=== PATIENT | female | born 1980 | race Caucasian/White ===

== ENCOUNTER 2016-10-08 13:03 | Emergency (ER) | payer BC ==
[~2016-10-08] VITALS: Ht 160 cm; Wt 61.2 kg
[~2016-10-08 13:03] MED LIST: ALBU8.5H2 IH; ALPR0.25 PO; GABA-534 PO; META800T11 PO; MTH/1CAP7 PO; NORE-7 PO; TAMS-12 PO; TAPE100T2 PO
[2016-10-08] MEDS ORDERED: NA PHOS,M-B/NA PHOS,DI-BA 1 EA ENEMA RC ONE ×4 (13:14→14:30)
[2016-10-08 13:20] LABS: BASOPHILS # (AUTO) 0.1 /CMM (0.0-0.2); BASOPHILS % (AUTO) 0.9 % (0.0-2.0); DIFF TOTAL % 100 %; EOSINOPHILS # (AUTO) 0.1 /CMM (0.0-0.7); EOSINOPHILS % (AUTO) 1.4 % (0.0-6.0); HEMATOCRIT 46 % (33-45); HEMOGLOBIN 14.7 g/dL (11.5-14.8); LYMPHOCYTES # (AUTO) 2.4 /CMM (0.8-4.8); LYMPHOCYTES % (AUTO) 34.8 % (20.0-44.0); MEAN CORPUSCULAR HEMOGLOBIN 28 PG (26.0-33.0); MEAN CORPUSCULAR HGB CONC 32 g/dl (31.0-36.0); MEAN CORPUSCULAR VOLUME 89 fL (82-100); MONOCYTES # (AUTO) 0.5 /CMM (0.1-1.30); MONOCYTES % (AUTO) 6.8 % (2.0-12.0); NEUTROPHILS # (AUTO) 3.8 /CMM (1.8-8.9); NEUTROPHILS % (AUTO) 56.1 % (43.0-81.0); PLATELET COUNT (AUTO) 424 /CMM (150-450); RED BLOOD CELL COUNT(AUTO) 5.21 MIL/uL (4.0-5.2); WHITE BLOOD COUNT (AUTO) 6.9 K/uL (4.3-11.0)
[2016-10-08 13:28] LABS: CALCIUM, SERUM 9.4 mg/dL (8.5-10.1); CREATININE 0.8 mg/dL (0.6-1.3); POTASSIUM 4.1 mmol/L (3.5-5.1)
[2016-10-08 13:34] LABS: ALBUMIN 3.8 g/dL (3.4-5.0); BILIRUBIN,DIRECT 0.1 mg/dL (0.0-0.2); BILIRUBIN,TOTAL 0.2 mg/dL (0.2-1.0); INDIRECT BILIRUBIN 0.1 mg/dL (0.0-1.1); TOTAL PROTEIN, SERUM 7.9 g/dL (6.4-8.2)
[2016-10-08] MEDS ORDERED: KETOROLAC TROMETHAMINE INJ 30 MG/ML VIAL ONE (14:05)
[2016-10-08 14:09] LABS: ADD UA MICROSCOPIC YES; KETONES,URINE Negative (NEGATIVE); LEUKOCYTE ESTERASE ,URINE Trace (NEGATIVE)
[2016-10-08 14:18] LABS: PREGNANCY TEST URINE QUAL NEGATIVE (NEGATIVE)
[2016-10-08 14:29] LABS: RBC,URINE 0-2 /HPF (0-2); WBC,URINE 0-3 /HPF (0-3)
[2016-10-08 14:30] LABS: ADD URINE CULTURE YES
[2016-10-08] MEDS ORDERED: KETOROLAC TROMETHAMINE INJ 30 MG/ML VIAL IM/IV ONE (14:30)
[2016-10-08 15:23] VITALS: BP 128/77
== END 2016-10-08 15:24 | disposition home or self-care (01) ==
LOC: ER 13:04
DX: K59.00 Constipation, unspecified (principal); F41.9 Anxiety disorder, unspecified; J45.909 Unspecified asthma, uncomplicated; Z88.6 Allergy status to analgesic agent; Z88.8 Allergy status to other drugs, medicaments and biological substances
CPT/HCPCS: 36415; 80048; 80076; 81001; 83690; 84703; 85025; 87086; 93005; 96374; 99285; A4606; J1885; 81000-TC; Z7610

== ENCOUNTER 2017-06-13 20:09 | Emergency (ER) | payer BC ==
[~2017-06-13] VITALS: Ht 167.6 cm; Wt 61.2 kg
--- NOTE | 2017-06-13 20:30 | NUR ---
To bed 8 a 36 yo female patient bb mother and reports of "feeling weak for a few days." patient is aaox4, nad noted. breathing even and unlabored. vss. nondiaphoretic. ambulatory. gowned. comfort and safety measures in place.
--- NOTE | 2017-06-13 21:00 | NUR ---
[employer] Freida at bedside to eval.
--- NOTE | 2017-06-13 21:15 | NUR ---
started a saline lock on the lac g20, blood drawn and sent to lab.
[2017-06-13] MEDS ORDERED: ONDANSETRON HCL/PF 4 MG/2 ML VIAL ONE (21:16)
[2017-06-13] MEDS ORDERED: LORAZEPAM INJ 2 MG/ML VIAL ONE (21:16)
[2017-06-13 21:19] LABS: BASOPHILS % (AUTO) 0.5 % (0.0-2.0); EOSINOPHILS # (AUTO) 0.4 /CMM (0.0-0.7); HEMATOCRIT 35 % (33-45); HEMOGLOBIN 11.4 g/dL (11.5-14.8); LYMPHOCYTES # (AUTO) 2.5 /CMM (0.8-4.8); LYMPHOCYTES % (AUTO) 31.4 % (20.0-44.0); MEAN CORPUSCULAR HEMOGLOBIN 29 PG (26.0-33.0); MEAN CORPUSCULAR HGB CONC 33 g/dl (31.0-36.0); MEAN CORPUSCULAR VOLUME 88 fL (82-100); MONOCYTES # (AUTO) 0.6 /CMM (0.1-1.30); MONOCYTES % (AUTO) 7.2 % (2.0-12.0); NEUTROPHILS # (AUTO) 4.4 /CMM (1.8-8.9); NEUTROPHILS % (AUTO) 55.9 % (43.0-81.0); PLATELET COUNT (AUTO) 251 /CMM (150-450); RDW COEFFICIENT OF VARIATION 13.1 (11.5-15.0); RED BLOOD CELL COUNT(AUTO) 3.96 MIL/uL (4.0-5.2); WHITE BLOOD COUNT (AUTO) 7.8 K/uL (4.3-11.0)
--- NOTE | 2017-06-13 21:26 | NUR ---
medicated patient as ordered. will continue to monitor.
[2017-06-13] MEDS ORDERED: IV NS 0.9% 1,000 ML BAG IV ONE (21:30)
[2017-06-13] MEDS ORDERED: LORAZEPAM INJ 2 MG/ML VIAL IV ONE (21:30)
[2017-06-13] MEDS ORDERED: ONDANSETRON HCL/PF 4 MG/2 ML VIAL IVP ONE (21:30)
[2017-06-13 21:33] LABS: CALCIUM, SERUM 8.3 mg/dL (8.5-10.1); CARBON DIOXIDE 31 mmol/L (21-32); CHLORIDE 104 mmol/L (98-107); CREATININE 0.7 mg/dL (0.6-1.3); GLUCOSE 105 mg/dL (74-106); POTASSIUM 3.9 mmol/L (3.5-5.1); SODIUM SERUM 139 mmol/L (136-145); UREA NITROGEN, BLOOD 9 mg/dL (7-18)
[2017-06-13 21:41] LABS: TROPONIN I < 0.017 ng/mL (0.00-0.056)
[2017-06-13 21:54] LABS: INR 0.9 (0.87-1.13); PROTHROMBIN TIME 9.4 SECS (9.5-12.7)
[2017-06-13 22:00] LABS: APPEARANCE,URINE CLEAR (CLEAR); BILIRUBIN,URINE NEGATIVE (NEGATIVE); BLOOD, URINE 1+ Ery/uL (NEGATIVE); COLOR,URINE YELLOW (YELLOW); KETONES,URINE NEGATIVE (NEGATIVE); LEUKOCYTE ESTERASE ,URINE NEGATIVE (NEGATIVE); NITRITE, URINE NEGATIVE (NEGATIVE); PROTEIN,URINE NEGATIVE (NEGATIVE); UGLUCOSE NEGATIVE (NEGATIVE); UROBILINOGEN,URINE 0.2 EU/dL (0.2)
[2017-06-13 22:10] LABS: BACTERIA,URINE Few /HPF (None Seen); SQUAMOUS EPITHELIAL CELL,UR Few /HPF (None Seen); WBC,URINE 0-2 /HPF (0-3)
--- NOTE | 2017-06-14 00:18 | NUR ---
IV removed. Catheter intact and site benign. Pressure and 4x4 applied to site. No bleeding noted. Patient discharged to home in stable condition. Written and verbal after care instructions given. Patient verbalizes understanding of instruction. Patient is ambulatory with steady gait, accompanied by mother. Instructed not to drive. No further complaints.
[2017-06-14 00:20] VITALS: BP 95/64
== END 2017-06-14 00:20 | disposition home or self-care (01) ==
LOC: ER 20:10
DX: T65.891A Toxic effect of other specified substances, accidental (unintentional), initial encounter (principal); F41.9 Anxiety disorder, unspecified; G89.29 Other chronic pain; J45.909 Unspecified asthma, uncomplicated; R79.1 Abnormal coagulation profile; Z88.6 Allergy status to analgesic agent; Z88.8 Allergy status to other drugs, medicaments and biological substances; Y92.89 Other specified places as the place of occurrence of the external cause
CPT/HCPCS: 36415; 71010; 80048; 80305; 81001; 84484; 85025; 85730; 93005; 93971; 96361; 96374; 96375; 99285; A4606; J2060; J2405; J7030; 81000-TC; Z7610

== ENCOUNTER 2019-12-15 18:39 | Inpatient (IN) | payer BC ==
[~2019-12-15] VITALS: Ht 167.6 cm; Wt 50.8 kg
[~2019-12-15 18:39] MED LIST changes: -ALBU8.5H2 IH; +ALBU8.5H8 IH; -META800T11 PO; +META800T85 PO; +klonopin PO
--- NOTE | 2019-12-15 19:30 | NUR ---
URINE COLLECTED AND SENT TO LAB
--- NOTE | 2019-12-15 19:31 | NUR ---
PATIENT CAME TO ER BED 10 C/O LOWER ABDOMINAL PAIN. PATIENT ALSO C/O OF MID-BACK PAIN THAT RADIATES TO THE RIGHT LOWER EXTREMITY PATIENTS STATES "SHOOTING PAIN". PATIENT CAME TO ER WITH A REFERRAL FROM AN URGENT CARE THAT SHE WENT TO PRIOR TO COMING TO ER. AAOX4. NO SOB. BREATHING EVENLY AND UNLABORED. CONNECTED TO MONITOR.
--- NOTE | 2019-12-15 19:37 | NUR ---
SEEN AND EXAMINED BY
[2019-12-15 19:39] LABS: APPEARANCE,URINE Clear (CLEAR); BILIRUBIN,URINE Negative (NEGATIVE); BLOOD, URINE Negative Ery/uL (NEGATIVE); COLOR,URINE Yellow (YELLOW); KETONES,URINE Negative (NEGATIVE); LEUKOCYTE ESTERASE ,URINE Negative (NEGATIVE); NITRITE, URINE Negative (NEGATIVE); PROTEIN,URINE Negative (NEGATIVE); UGLUCOSE Negative (NEGATIVE); UROBILINOGEN,URINE 0.2 EU/dL (0.2)
[2019-12-15] MEDS ORDERED: diphenhydrAMINE HCL 25 MG CAPSULE ONE (19:51)
[2019-12-15] MEDS ORDERED: HYDROMORPHONE 1 MG/1 ML DISP.SYRIN ONE ×2 (19:51→21:01)
[2019-12-15] MEDS ORDERED: DIPHENHYDRAMINE HCL 12.5 MG/5 ML UDC PO ONE (20:00)
[2019-12-15] MEDS ORDERED: HYDROMORPHONE 1 MG/1 ML DISP.SYRIN IV ONE ×2 (20:00→21:00)
--- NOTE | 2019-12-15 20:11 | NUR ---
BLOOD DRAWN AND SENT TO LAB.
--- NOTE | 2019-12-15 20:18 | NUR ---
TAKEN TO CT VIA FELIPE
[2019-12-15 20:20] LABS: BASOPHILS # (AUTO) 0.1 /CMM (0.0-0.2); EOSINOPHILS % (AUTO) 1.3 % (0.0-6.0); HEMATOCRIT 37 % (33-45); HEMOGLOBIN 12.1 g/dL (11.5-14.8); LYMPHOCYTES # (AUTO) 1.5 /CMM (0.8-4.8); LYMPHOCYTES % (AUTO) 22.9 % (20.0-44.0); MEAN CORPUSCULAR HGB CONC 33 g/dl (31.0-36.0); MEAN CORPUSCULAR VOLUME 86 fL (82-100); MONOCYTES # (AUTO) 0.4 /CMM (0.1-1.30); NEUTROPHILS # (AUTO) 4.5 /CMM (1.8-8.9); NEUTROPHILS % (AUTO) 68.8 % (43.0-81.0); PLATELET COUNT (AUTO) 358 /CMM (150-450); WHITE BLOOD COUNT (AUTO) 6.6 K/uL (4.3-11.0)
[2019-12-15 20:29] LABS: ALBUMIN 3.8 g/dL (3.4-5.0); BILIRUBIN,TOTAL 0.3 mg/dL (0.2-1.0); CALCIUM, SERUM 9.3 mg/dL (8.5-10.1); CREATININE 0.9 mg/dL (0.6-1.3); POTASSIUM 4.2 mmol/L (3.5-5.1); TOTAL PROTEIN, SERUM 7.6 g/dL (6.4-8.2)
[2019-12-15] MEDS ORDERED: IV NS 0.9% 1,000 ML BAG IV ONE (21:00)
--- NOTE | 2019-12-15 21:46 | NUR ---
MS 322-1
--- NOTE | 2019-12-15 22:15 | NUR ---
DR OCONNOR CALLED BACK AND SPEAKING TO MD Addendum: 12/15/19 at [address] ARABELLA OCONNOR (PT'S GI DOCTOR FROM [facility])
--- NOTE | 2019-12-15 22:18 | NUR ---
REPORT GIVEN TO JAGUAR TERRELL FOR ADAM.
[2019-12-15 22:30] VITALS: BP_SYST 112; BP_DIAS 68; BP_DIAS 74
--- NOTE | 2019-12-15 22:30 | NUR ---
GUARDIAN FAMILY MEMBER NOTE, RECEIVED PATIENT FROM E.. / HOME VIA STECHER, PATIENT HAS A COMPLAINT OF ABDOMINAL PAIN AT 9 OUT 10 ON THE PAIN SCALE. PATIENT IS GETTING IV PAIN MEDICATION FOR THIS PAIN. PATIENT IS DISPLAYING NO S/S OF APPARENT DISTRESS AT THIS TIME. PATIENT BREATHING IS UNLABORED WITH EQUAL RISE AND FALL OF THE CHEST. PATIENT IS ALERT AND ORIENTED X 4 ON ROOM AIR. IVF NS @ 75 ML / HR INFUSING WELL INTO RIGHT 20 GAUGE FORE ARM THAT IS INTACT, PATENT, AND FLUSHING WELL WITH NO S/S OF INFILTRATION. PATIENT HAS CARNES CATHETER GRAVITY DRAINING CLEAR YELLOW URINE INTO BAG. PATIENT ASSISTED WITH TURNING AND REPOSITIONING Q 2 HR AND PRN FOR COMFORT AND CIRCULATION. PATIENT HAS NO NEEDS AT THIS TIME. PATIENT BELONGINGS LIST, ADVANCED DIRECTIVES PREFERENCE, IMMUNIZATIONS QUESTIONER, AND SKIN ASSESSMENT HAS BEEN COMPLETED. PATIENT ORIENTATED TO ROOM, FLOOR, AND STAFF ALL QUESTIONS ANSWERED. PATIENT EDUCATED ON THE USE OF THE CALL LIGHT. PATIENT BED SIDE RAILS UP X 2 FOR SAFETY, BED IS LOCKED AND LOW WILL CONTINUE TO MONITOR AND MAINTAIN SAFETY.
[2019-12-15] MEDS ORDERED: DOXE50CA4 PO (23:11)
[2019-12-15] MEDS ORDERED: AMPH10TA4 PO (23:14)
[2019-12-15] MEDS: IV NS 0.9% 1,000 ML IV PRN (23:29)
[2019-12-15] MEDS ORDERED: Z GUARD REMEDY 2 OZ OINT TP PRN (23:30)
[2019-12-15] MEDS ORDERED: NA PHOS,M-B/NA PHOS,DI-BA 1 EA ENEMA RC PRN (23:30)
[2019-12-15] MEDS ORDERED: ACETAMINOPHEN 325 MG TABLET PO PRN (23:30)
[2019-12-15] MEDS ORDERED: MORPHINE SULFATE INJ 2 MG/ML DISP.SYRIN IV PRN (23:30)
[2019-12-15] MEDS ORDERED: MAGNESIUM CITRATE 296 ML BOTTLE PO ONE (23:30)
[2019-12-16] MEDS ORDERED: ALBUTEROL SULFATE INH 18 GM HFA.AER.AD IH SCH
[2019-12-16] MEDS ORDERED: DOXEPIN HCL 10 MG CAPSULE PO PRN
[2019-12-16] MEDS ORDERED: clonazePAM 1 MG TABLET PO PRN
[2019-12-16] MEDS: HYDROMORPHONE 1 MG/1 ML DISP.SYRIN IV PRN ×6 (00:10→22:46)
--- NOTE | 2019-12-16 00:10 | NUR ---
FLAT OPTICAL ELEMENT MAKER NOTE, PATIENT HAS A COMPLAINT OF LOWER ABDOMINAL PAIN AT 9 OUT 10 ON THE PAIN SCALE AND IS REQUESTING DILAUDID AT THIS TIME. PATIENT VITAL SIGNS ARE STABLE. GAVE DILAUDID 1 MG IV Q4HR PRN ORDERED. WILL REASSESS PAIN AND I WILL CONTINUE TO MONITOR THIS PATIENT.
[2019-12-16] MEDS ORDERED: ALBUTEROL FS 2.5 MG/3 ML VIAL.NEB NEB PRN (00:15)
--- NOTE | 2019-12-16 04:30 | NUR ---
BUSINESS TRAVEL CONSULTANT NOTE, PATIENT HAS A COMPLAINT OF LOWER ABDOMINAL PAIN AT 9 OUT 10 ON THE PAIN SCALE AND IS REQUESTING DILAUDID AT THIS TIME. PATIENT VITAL SIGNS ARE STABLE. GAVE DILAUDID 1 MG IV Q4HR PRN ORDERED. WILL REASSESS PAIN AND I WILL CONTINUE TO MONITOR THIS PATIENT.
--- NOTE | 2019-12-16 04:30 | NUR ---
ILIANA DUMONT RN NOTE, PATIENT HAS A COMPLAINT OF FEELING NAUSEA AND IS REQUESTING ZOFRAN AT THIS TIME. PATIENT VITAL SIGNS ARE STABLE. GAVE ZOFRAN 4 MG PO Q6HR PRN ORDERED WILL REASSESS FOR NAUSEA WILL CONTINUE TO MONITOR THIS PATIENT.
[2019-12-16] MEDS: ONDANSETRON HCL/PF 4 MG/2 ML VIAL IVP PRN ×2 (04:31→09:00)
--- NOTE | 2019-12-16 06:36 | NUR ---
MED SURG CLOSING RN NOTE, PATIENT HAS A COMPLAINT OF ABDOMINAL PAIN AT 5 OUT 10 ON THE PAIN SCALE. PATIENT IS GETTING IV PAIN MEDICATION FOR THIS PAIN. PATIENT IS DISPLAYING NO S/S OF APPARENT DISTRESS AT THIS TIME. PATIENT BREATHING IS UNLABORED WITH EQUAL RISE AND FALL OF THE CHEST. PATIENT IS ALERT AND ORIENTED X 4 ON ROOM AIR. IVF NS @ 75 ML / HR INFUSING WELL INTO RIGHT 20 GAUGE FORE ARM THAT IS INTACT, PATENT, AND FLUSHING WELL WITH NO S/S OF INFILTRATION. PATIENT HAS CARNES CATHETER GRAVITY DRAINING CLEAR YELLOW URINE INTO BAG. PATIENT ASSISTED WITH TURNING AND REPOSITIONING Q 2 HR AND PRN FOR COMFORT AND CIRCULATION. PATIENT HAS NO NEEDS AT THIS TIME. PATIENT BED SIDE RAILS UP X 2 FOR SAFETY, BED IS LOCKED AND LOW WILL ENDORSE TO AM SHIFT NURSE FOR CONTINUATION OF CARE.
[2019-12-16] MEDS: PANTOPRAZOLE 40 MG TABLET.DR PO SCH ×3 (07:30→08:59)
--- NOTE | 2019-12-16 07:54 | NUR ---
RN OPENING NOTE: RECEIVED PATIENT IN BED, AWAKE AND AOX4. AMBULATORY WITH STEADY GAIT. PATIENT IS C/O PAIN 9/10 IN ABDOMEN. ASSISTED WITH REPOSITIONING. EDUCATED ON USE OF PAIN MEDICATION AND WHEN NEXT DOSE IS AVAILABLE. PATIENT IS TOLERATING CLEAR LIQUID DIET. RFA 20G PATENT, FLUSHED, INTACT RUNNING NS AT 75 ML/HR ORDERED. PATIENT ENDORSED 25 POUND WEIGHT GAIN. CURRENTLY AT 130.8 POUNDS. ADMIT WEIGHT 112. STATES SHE IS NORMALLY AT 104 POUNDS. ENDORSED ANXIETY AND PREVIOUS EATING DISORDER. LABS THIS MORNING. SAFETY PRECAUTIONS IN PLACE. BED IN LOW POSITION, LOCKED WITH 2 SIDE RAILS UP FOR SAFETY. CALL LIGHT WITHIN REACH. ALL NEEDS ATTENDED TO. WILL CONTINUE TO MONITOR.
[2019-12-16 08:00] VITALS: BP 101/57
[2019-12-16] MEDS ORDERED: GABAPENTIN 100 MG CAPSULE PO SCH ×2 (09:00→18:00)
[2019-12-16] MEDS ORDERED: diphenhydrAMINE HCL 50 MG/ML VIAL IV PRN (09:00)
[2019-12-16] MEDS ORDERED: AMPHET ASP/AMPHET/D-AMPHET 10 MG TABLET PO SCH (09:00)
[2019-12-16 09:03] LABS: BASOPHILS % (AUTO) 0.6 % (0.0-2.0); EOSINOPHILS % (AUTO) 0.4 % (0.0-6.0); HEMATOCRIT 35 % (33-45); HEMOGLOBIN 11.5 g/dL (11.5-14.8); LYMPHOCYTES # (AUTO) 1.1 /CMM (0.8-4.8); LYMPHOCYTES % (AUTO) 22.9 % (20.0-44.0); MEAN CORPUSCULAR HGB CONC 33 g/dl (31.0-36.0); MEAN CORPUSCULAR VOLUME 86 fL (82-100); MONOCYTES # (AUTO) 0.5 /CMM (0.1-1.30); NEUTROPHILS # (AUTO) 3.2 /CMM (1.8-8.9); NEUTROPHILS % (AUTO) 65.1 % (43.0-81.0); PLATELET COUNT (AUTO) 313 /CMM (150-450); RED BLOOD CELL COUNT(AUTO) 4.09 MIL/uL (4.0-5.2)
[2019-12-16 09:22] LABS: THYROID STIMULATING HORMONE 5.813 uIU/mL (0.358-3.74)
[2019-12-16 09:28] LABS: ALBUMIN 3.2 g/dL (3.4-5.0); BILIRUBIN,TOTAL 0.9 mg/dL (0.2-1.0); CALCIUM, SERUM 8.6 mg/dL (8.5-10.1); PHOSPHORUS 3.9 mg/dL (2.5-4.9); POTASSIUM 4.1 mmol/L (3.5-5.1); TOTAL PROTEIN, SERUM 6.5 g/dL (6.4-8.2)
[2019-12-16] MEDS: IV NS 0.9% 1,000 ML IV PRN (12:08)
[2019-12-16] MEDS ORDERED: diphenhydrAMINE HCL 50 MG/ML VIAL IV ONE (13:00)
--- NOTE | 2019-12-16 13:00 | NUR ---
DESPITE EDUCATION PATIENT IS REFUSING TO USE CONTRAST FOR XRAY SMALL BOWEL FOLLOW THROUGH. PROCEDURE CANCELLED
[2019-12-16] MEDS ORDERED: BARIUM SULFATE 98% 135 ML SUSP.RECON PO ONE (15:46)
[2019-12-16 16:00] VITALS: BP 97/66
--- NOTE | 2019-12-16 16:04 | NUR ---
PATIENT PICKED UP FOR XR SMALL BOWEL FOLLOW THROUGH
--- NOTE | 2019-12-16 16:21 | NUR ---
GI CONSULT REQUESTED BY MICHAEL WHITEHEAD / DR MILLS. CLIF AWARE. DR. ESTEVEZ NOTIFIED.
[2019-12-16 16:46] LABS: ALBUMIN 3.4 g/dL (3.4-5.0); BILIRUBIN,DIRECT 0.3 mg/dL (0.0-0.2); BILIRUBIN,TOTAL 0.9 mg/dL (0.2-1.0); TOTAL PROTEIN, SERUM 6.5 g/dL (6.4-8.2)
--- NOTE | 2019-12-16 18:00 | NUR ---
patient NPO unable to administer Gabapentin at this time.
--- NOTE | 2019-12-16 18:42 | NUR ---
RN CLOSING NOTE: PATIENT IN BED, AWAKE AND AOX4. AMBULATORY WITH STEADY GAIT. BREATHING EVEN AND UNLABORED WITH EQUAL RISE AND FALL OF CHEST. PATIENT IS C/O PAIN 05/09 IN ABDOMEN. PAIN MEDICATION ADMINISTERED ORDERED. LEFT WRIST 22G RUNNING NS AT 75 ML/HR ORDERED. SAFETY PRECAUTIONS IN PLACE. BED IN LOW POSITION, LOCKED WITH 2 SIDE RAILS UP FOR SAFETY. CALL LIGHT WITHIN REACH. ALL NEEDS ATTENDED TO. WILL CONTINUE TO MONITOR. Addendum: 12/16/19 at 1847 by SUSANNA PORRAS RN WILL ENDORSE CARE TO GYROSCOPIC INSTRUMENT TESTER RN FOR ADAM
--- NOTE | 2019-12-16 19:30 | NUR ---
MED SURG OPENING RN NOTE, PATIENT HAS A COMPLAINT OF ABDOMINAL PAIN AT 5 OUT 10 ON THE PAIN SCALE. PATIENT IS GETTING IV PAIN MEDICATION FOR THIS PAIN. PATIENT IS DISPLAYING NO S/S OF APPARENT DISTRESS AT THIS TIME. PATIENT BREATHING IS UNLABORED WITH EQUAL RISE AND FALL OF THE CHEST. PATIENT IS ALERT AND ORIENTED X 4 ON ROOM AIR. IVF NS @ 75 ML / HR INFUSING WELL INTO LEFT 22GAUGE FORE ARM THAT IS INTACT, PATENT, AND FLUSHING WELL WITH NO S/S OF INFILTRATION. PATIENT HAS CARNES CATHETER GRAVITY DRAINING CLEAR YELLOW URINE INTO BAG. PATIENT ASSISTED WITH TURNING AND REPOSITIONING Q 2 HR AND PRN FOR COMFORT AND CIRCULATION. PATIENT HAS NO NEEDS AT THIS TIME. PATIENT BED SIDE RAILS UP X 2 FOR SAFETY, BED IS LOCKED AND LOW WILL CONTINUE TO MONITOR THIS PATIENT.
[2019-12-16 20:00] VITALS: BP 93/58
[2019-12-16 21:06] VITALS: BP 93/58
[2019-12-16 22:41] VITALS: BP 109/70
--- NOTE | 2019-12-16 22:46 | NUR ---
JEWELRY INTERNSHIP NOTE, PATIENT HAS A COMPLAINT OF LOWER ABDOMINAL PAIN AT 8 OUT 10 ON THE PAIN SCALE AND IS REQUESTING DILAUDID AT THIS TIME. PATIENT VITAL SIGNS ARE STABLE. GAVE DILAUDID 1 MG IV Q4HR PRN ORDERED. WILL REASSESS PAIN AND I WILL CONTINUE TO MONITOR THIS PATIENT.
[2019-12-16] MEDS ORDERED: GABAPENTIN 100 MG CAPSULE PO ONE (23:00)
[2019-12-16] MEDS ORDERED: MAGNESIUM CITRATE 296 ML BOTTLE PO ONE (23:00)
--- NOTE | 2019-12-16 23:17 | NUR ---
ILIANA DUMONT RN NOTE, PATIENT SMALL BOWEL X-RAY ARE FOLLOWS 1. Delayed passage of contrast through the small bowel, suggestive of hypomotility versus adynamic ileus given the presence of extensive stool throughout the colon. 2. No evidence of bowel obstruction. PAGED [facility] AND INFORMED DR POLANCO OF MY FINDINGS. DR POLANCO ORDERED TO ADVANCE DIET, GIVE MAGNESIUM CITRATE 296ML PO ONCE AND TO GIVE MISSED DOSE OF GABAPENTIN 500MG PO ONCE. ALL ORDERS NOTED AND CARRIED OUT WILL CONTINUE TO MONITOR THIS PATIENT.
[2019-12-17] MEDS: HYDROMORPHONE 1 MG/1 ML DISP.SYRIN IV PRN ×2 (04:08→08:09)
--- NOTE | 2019-12-17 04:08 | NUR ---
BEAN ROASTER NOTE, PATIENT HAS A COMPLAINT OF LOWER ABDOMINAL PAIN AT 8 OUT 10 ON THE PAIN SCALE AND IS REQUESTING DILAUDID AT THIS TIME. PATIENT VITAL SIGNS ARE STABLE. GAVE DILAUDID 1 MG IV Q4HR PRN ORDERED. WILL REASSESS PAIN AND I WILL CONTINUE TO MONITOR THIS PATIENT.
[2019-12-17] MEDS: IV NS 0.9% 1,000 ML IV PRN (05:19)
--- NOTE | 2019-12-17 06:24 | NUR ---
MED SURG CLOSING RN NOTE, PATIENT HAS A COMPLAINT OF ABDOMINAL PAIN AT 5 OUT 10 ON THE PAIN SCALE. PATIENT IS GETTING IV PAIN MEDICATION FOR THIS PAIN. PATIENT IS DISPLAYING NO S/S OF APPARENT DISTRESS AT THIS TIME. PATIENT BREATHING IS UNLABORED WITH EQUAL RISE AND FALL OF THE CHEST. PATIENT IS ALERT AND ORIENTED X 4 ON ROOM AIR. IVF NS @ 75 ML / HR INFUSING WELL INTO LEFT 22 GAUGE FORE ARM THAT IS INTACT, PATENT, AND FLUSHING WELL WITH NO S/S OF INFILTRATION. PATIENT HAS CARNES CATHETER GRAVITY DRAINING CLEAR YELLOW URINE INTO BAG. PATIENT ASSISTED WITH TURNING AND REPOSITIONING Q 2 HR AND PRN FOR COMFORT AND CIRCULATION. PATIENT HAS NO NEEDS AT THIS TIME. PATIENT BED SIDE RAILS UP X 2 FOR SAFETY, BED IS LOCKED AND LOW WILL ENDORSE TO AM SHIFT NURSE FOR CONTINUATION OF CARE.
--- NOTE | 2019-12-17 07:35 | NUR ---
MS RN NOTE RECEIVED PATIENT IN BED ASLEEP, ARUOSABLE TO VERBAL AND TACTILE STIMULI. HOB ELEVATED. BED IN LOWEST POSITION, LOCKED. BED ALARM ENDODONTIC ASSISTANT LIGHT WITHIN REACH. ABLE TO VERBALIZE NEEDS.
[2019-12-17 07:39] LABS: BASOPHILS % (AUTO) 0.9 % (0.0-2.0); EOSINOPHILS % (AUTO) 8.1 % (0.0-6.0); HEMATOCRIT 35 % (33-45); HEMOGLOBIN 11.4 g/dL (11.5-14.8); LYMPHOCYTES # (AUTO) 1.5 /CMM (0.8-4.8); LYMPHOCYTES % (AUTO) 38.6 % (20.0-44.0); MEAN CORPUSCULAR HGB CONC 33 g/dl (31.0-36.0); MEAN CORPUSCULAR VOLUME 86 fL (82-100); MONOCYTES # (AUTO) 0.6 /CMM (0.1-1.30); MONOCYTES % (AUTO) 14.7 % (2.0-12.0); NEUTROPHILS # (AUTO) 1.4 /CMM (1.8-8.9); NEUTROPHILS % (AUTO) 37.7 % (43.0-81.0); PLATELET COUNT (AUTO) 298 /CMM (150-450); RED BLOOD CELL COUNT(AUTO) 4.05 MIL/uL (4.0-5.2); WHITE BLOOD COUNT (AUTO) 3.8 K/uL (4.3-11.0)
[2019-12-17 07:56] LABS: CALCIUM, SERUM 8.5 mg/dL (8.5-10.1); CREATININE 0.7 mg/dL (0.6-1.3); MAGNESIUM 2.4 mg/dL (1.8-2.4); PHOSPHORUS 3.4 mg/dL (2.5-4.9); POTASSIUM 4.4 mmol/L (3.5-5.1)
[2019-12-17 08:00] VITALS: BP 110/79
[2019-12-17] MEDS ORDERED: AMPHET ASP/AMPHET/D-AMPHET 10 MG TABLET PO SCH (09:00)
[2019-12-17] MEDS ORDERED: IV NS 0.9% 1,000 ML IV PRN (09:09)
[2019-12-17 09:52] LABS: ALBUMIN 3.1 g/dL (3.4-5.0); BILIRUBIN,DIRECT 0.1 mg/dL (0.0-0.2); BILIRUBIN,TOTAL 0.3 mg/dL (0.2-1.0); TOTAL PROTEIN, SERUM 6.4 g/dL (6.4-8.2)
--- NOTE | 2019-12-17 11:20 | NUR ---
MS RN NOTE PATIENT LEFT AMA. ÁNGEL AWARE. RE-EDUCATED PATIENT REGARDING RISKS OF LEAVING AMA, PATIENT VERBALIZES UNDERSTANDING. 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 PATIENT STATES SHE HAS AN APPOINTMENT SCHEDULED IN AM WITH PCP AND WILL SCHEDULE AN APPOINTMENT WITH OWN GI. PATIENT UNHAPPY AND WANTS COPIES OF OWN LABS. PATIENT DOES NOT WANT DISCHARGED PACKET TO BE PROVIDED. NOTED PATIENT WITH LARGE BM. AMBULATORY WITH STEADY GAIT. CARNES CATH REMOVED, PATIENT VOIDED FREELY WITHOUT DIFFICULTY. IV ACCESS REMOVED WITH CATHETER TIP INTACT WITH GAUZE DRESSING APPLIED TO SITE. PATIENT LEFT IN STABLE CONDITION AND PICKED UP BY MOTHER.
== END 2019-12-17 11:20 | disposition left against medical advice (07) | DRG 389 ==
LOC: ER 18:42 → MED 22:13
PROVIDERS: ADMIT Nurse Practitioner Acute Care; ATTEND Registered Nurse
DX: K56.600 Partial intestinal obstruction, unspecified as to cause (principal); N13.30 Unspecified hydronephrosis; K56.0 Paralytic ileus; J45.909 Unspecified asthma, uncomplicated; F41.9 Anxiety disorder, unspecified; Z98.890 Other specified postprocedural states; Z88.5 Allergy status to narcotic agent; Z91.041 Radiographic dye allergy status; Z79.51 Long term (current) use of inhaled steroids; Z79.899 Other long term (current) drug therapy; Z90.49 Acquired absence of other specified parts of digestive tract; Z91.19 Patient's noncompliance with other medical treatment and regimen; K58.1 Irritable bowel syndrome with constipation; Z87.19 Personal history of other diseases of the digestive system; R74.0 Nonspecific elevation of levels of transaminase and lactic acid dehydrogenase [LDH]; G89.29 Other chronic pain; Z91.14 Patient's other noncompliance with medication regimen
CPT/HCPCS: 36415; 71045-TC; 74250-TC; 80048-TC; 80053-TC; 80061-TC; 80076-TC; 81000-TC; 82247-TC; 82248-TC; 83690-TC; 83735-TC; 84100-TC; 84439-TC; 84443-TC; 84703-TC; 85025-TC; 85730-TC; 87081-TC; 87086-TC; G0378; J1170; J1200; J2405; J7030; Q0163

== ENCOUNTER 2020-07-16 20:03 | Inpatient (IN) | payer BC ==
[~2020-07-16] VITALS: Ht 165.1 cm; Wt 54.0 kg
[~2020-07-16 20:03] MED LIST changes: -ALPR0.25 PO; +AMPH10TA4 PO; +DOXE50CA4 PO; -META800T85 PO; -MTH/1CAP7 PO; -NORE-7 PO; -TAMS-12 PO; -TAPE100T2 PO
--- NOTE | 2020-07-16 20:03 | NUR ---
BIB EMS C/O BIZARRE BEHAVIOR. PT TWITCHES INTERMITTENTLY, REFUSING TO TALK. PT WAS VERY ANXIOUS UPON ARRIVAL OF EMS. PT NON VERBAL, -SOB, NOT IN ACUTE DISTRESS, PLACED ON MONITOR, GOWNED, VSS, PENDING ER PROVIDRE EVAL
[2020-07-16] MEDS ORDERED: IV NS 0.9% 1,000 ML BAG IV ONE (20:30)
[2020-07-16] MEDS ORDERED: LORAZEPAM INJ 2 MG/ML VIAL IV ONE ×2 (20:30→21:30)
[2020-07-16] MEDS ORDERED: LORAZEPAM INJ 2 MG/ML VIAL ONE ×2 (20:31→21:11)
[2020-07-16 20:48] LABS: BASOPHILS # (AUTO) 0.2 /CMM (0.0-0.2); BASOPHILS % (AUTO) 2.8 % (0.0-2.0); EOSINOPHILS % (AUTO) 1.3 % (0.0-6.0); HEMATOCRIT 43 % (33-45); HEMOGLOBIN 14.1 g/dL (11.5-14.8); LYMPHOCYTES # (AUTO) 1.3 /CMM (0.8-4.8); LYMPHOCYTES % (AUTO) 14.6 % (20.0-44.0); MEAN CORPUSCULAR HGB CONC 33 g/dl (31.0-36.0); MEAN CORPUSCULAR VOLUME 92 fL (82-100); MONOCYTES # (AUTO) 0.5 /CMM (0.1-1.30); MONOCYTES % (AUTO) 5.5 % (2.0-12.0); NEUTROPHILS # (AUTO) 6.5 /CMM (1.8-8.9); NEUTROPHILS % (AUTO) 75.8 % (43.0-81.0); PLATELET COUNT (AUTO) 327 /CMM (150-450); RED BLOOD CELL COUNT(AUTO) 4.61 MIL/uL (4.0-5.2); WHITE BLOOD COUNT (AUTO) 8.6 K/uL (4.3-11.0)
[2020-07-16 21:01] LABS: ACETAMINOPHEN < 2 ug/ml (10-30); ALANINE AMINOTRANSFERASE 24 U/L (12-78); ALBUMIN 3.8 g/dL (3.4-5.0); ALCOHOL, BLOOD < 3 mg/dL (0-0); ALKALINE PHOSPHATASE 53 U/L (46-116); ASPARTATE AMINOTRANSFERASE 18 U/L (15-37); BILIRUBIN,DIRECT 0.1 mg/dL (0.0-0.2); BILIRUBIN,TOTAL 0.3 mg/dL (0.2-1.0); CALCIUM, SERUM 9.1 mg/dL (8.5-10.1); CARBON DIOXIDE 27 mmol/L (21-32); CHLORIDE 99 mmol/L (98-107); GLUCOSE 69 mg/dL (74-106); POTASSIUM 3.5 mmol/L (3.5-5.1); SODIUM SERUM 134 mmol/L (136-145); TOTAL PROTEIN, SERUM 7.3 g/dL (6.4-8.2); UREA NITROGEN, BLOOD 9 mg/dL (7-18)
[2020-07-16] MEDS ORDERED: LEVETIRACETAM (500MG) 500 MG/5 ML VIAL IV ONE (21:04)
--- NOTE | 2020-07-16 21:21 | NUR ---
LAB CALLED REGARDING NEGATIVE COVID RESULT.
--- NOTE | 2020-07-16 21:22 | NUR ---
PT TO CT
[2020-07-16] MEDS ORDERED: DEXTROSE 50%-WATER 50 ML DISP.SYRIN ONE (21:26)
[2020-07-16] MEDS ORDERED: LEVETIRACETAM (500MG) 1,000 MG in IV NS 0.9% 100 ML IV SCH ×2 (21:30→22:26)
--- NOTE | 2020-07-16 21:40 | NUR ---
CALLED NURSING SUP FOR BED
--- NOTE | 2020-07-16 21:42 | NUR ---
BED ASSIGNMENT 116-1
[2020-07-16] MEDS ORDERED: GABA600T12 PO (21:55)
[2020-07-16] MEDS ORDERED: CLON0.5T4 PO (21:55)
[2020-07-16] MEDS ORDERED: SPIR50TA5 PO (21:55)
[2020-07-16] MEDS ORDERED: DEXT5TAB15 PO (21:55)
[2020-07-16] MEDS ORDERED: BACL20TA PO (21:55)
--- NOTE | 2020-07-16 21:55 | NUR ---
REPORT GIVEN TO RODOLFO TERRELL FOR ADAM PT WILL BE TRANSPORTED TO 1ST FLOOR
[2020-07-16] MEDS ORDERED: DEXTROSE 50%-WATER 50 ML DISP.SYRIN IV ONE (22:00)
[2020-07-16] MEDS ORDERED: Z GUARD REMEDY 2 OZ OINT TP PRN (22:00)
[2020-07-16] MEDS ORDERED: MAG HYDROX/AL HYDROX/SIMETH 30 ML UDC PO PRN (22:00)
[2020-07-16] MEDS ORDERED: ONDANSETRON HCL/PF 4 MG/2 ML VIAL IVP PRN (22:00)
[2020-07-16] MEDS ORDERED: ACETAMINOPHEN 650 MG/SUPP.RECT RC PRN (22:00)
[2020-07-16] MEDS ORDERED: ENOXAPARIN SODIUM 30 MG/0.3 ML DISP.SYRIN SQ SCH (22:00)
[2020-07-16 22:21] LABS: BILIRUBIN,URINE NEGATIVE (NEGATIVE); BLOOD, URINE NEGATIVE Ery/uL (NEGATIVE); COLOR,URINE YELLOW (YELLOW); LEUKOCYTE ESTERASE ,URINE NEGATIVE (NEGATIVE); NITRITE, URINE NEGATIVE (NEGATIVE); PROTEIN,URINE NEGATIVE (NEGATIVE); UGLUCOSE NEGATIVE (NEGATIVE); UROBILINOGEN,URINE 0.2 EU/dL (0.2)
[2020-07-16 22:30] VITALS: BP 100/58
--- NOTE | 2020-07-16 22:30 | NUR ---
RN NOTE PT ARRIVED TO UNIT ON 2L OF O2 VIA NASAL CANNULA, V/S TEMP 98.7 AX, B/P 100/58, P 72, RR 16 O2 SAT 100%.PT FACE AND ARM TWITCHING FOR 5 SECONDS. PT SPEECH NO CLEAN UNABLE TO COMPREHEND PT, RESPONDS TO NAME AND LIGHT TOUCH, OPENS EYES. PT WAKES UP INTERMITTENTLY. IV TO LFA PATENT INTACT AND FLUSHING WELL. PT CLEANED MADE COMFORTABLE, SINUS RHYTHM ON TELE MONITOR. PT VOIDED 500 ML IN BED NOVOA. PT CURRENTLY NPO. HOB IN SEMI-FOWLERS POSITION, SAFETY MEASURES IN PLACE, SIDE RAILS PADDED, SIDE RAILS UP X 3, BED ALARM ON, BED LOCKED AND IN THE LOWEST POSITION, CALL LIGHT WITHIN REACH WILL CONT. TO MONITOR PT.
--- NOTE | 2020-07-16 22:37 | NUR ---
PHONE NUMBERS FOR FAMILY MEMBERS: DR BECKY HOLLOWAY [phone] MRS AWAD NYJARRED [phone] [facility] [phone]
--- NOTE | 2020-07-16 22:41 | NUR ---
pt transporte to [facility]
[2020-07-16] MEDS: IV D5/ 0.9% NACL 1,000 ML IV PRN (23:00)
--- NOTE | 2020-07-16 23:00 | NUR ---
RN NOTE D5NS STARTED AT 125 ML/HR. WILL RECHECK BLOOD SUGAR ACCUCHECK IN 1 HR
--- NOTE | 2020-07-16 23:35 | NUR ---
RN NOTE TEXTED GARCÍA AWARE PT IS AWAKE. PT CRYING POINTING TO ABDOMEN. SAYING "PAIN" PER PT DOES NOT WANT TYLENOL. TEXTED MD FOR MED ORDER CHANGE
--- NOTE | 2020-07-16 23:45 | NUR ---
RN NOTE YAYA CALLED FOR UPDATE. AWARE PT IS NOW AWAKE. PER AND MOTHER PT UNABLE TO TAKE TYLENOL MAKES PT NAUSEOUS
[2020-07-17] VITALS: BP 100/58
--- NOTE | 2020-07-17 00:05 | NUR ---
RN NOTE GARCÍA GODOY RAILWAYS ASSISTANT HERE TO SEE PT. NEW MEDICATION ORDER ENTERED FOR PAIN, DILAUDID 0.25MG IV Q6 PRN PER GARCÍA. PT CURRENTLY ASLEEP.
[2020-07-17] MEDS ORDERED: HYDROMORPHONE 1 MG/1 ML DISP.SYRIN IV PRN (00:30)
--- NOTE | 2020-07-17 00:30 | NUR ---
RN NOTE ACCUCHECK BLOOD SUGAR 80. CHARGE NURSE AWARE
--- NOTE | 2020-07-17 03:00 | NUR ---
RN NOTE PT CALLED. REQUESTING UPDATE OF PT. MADE AWARE PT SLEEPING INTERMITTENTLY AND OPENS EYES. CONCERN STATES IS IN PARKING LOT OF HOSPITAL
[2020-07-17 04:00] VITALS: BP 94/58
--- NOTE | 2020-07-17 05:00 | NUR ---
RN NOTE PT YAYA CALLED. REQUESTING UPDATE OF PT.
--- NOTE | 2020-07-17 05:25 | NUR ---
RN NOTE PT AWAKE STATES, "I WANT TO PEE." PT PLACED ON BED NOVOA. VOIDED 100 ML. PT CRYING C/O PAIN POINTING TO ABDOMEN. PAIN MEDICATION GIVEN PER MD ORDER. WILL CONTINUE TO MONITOR PT.
[2020-07-17] MEDS: IV D5/ 0.9% NACL 1,000 ML IV PRN (06:00)
[2020-07-17 06:10] LABS: ALBUMIN 2.7 g/dL (3.4-5.0); BILIRUBIN,TOTAL 0.3 mg/dL (0.2-1.0); CREATININE 0.8 mg/dL (0.6-1.3); MAGNESIUM 1.9 mg/dL (1.8-2.4); PHOSPHORUS 2.9 mg/dL (2.5-4.9); POTASSIUM 3.7 mmol/L (3.5-5.1); TOTAL PROTEIN, SERUM 5.4 g/dL (6.4-8.2)
[2020-07-17 06:28] LABS: BASOPHILS # (AUTO) 0.1 /CMM (0.0-0.2); BASOPHILS % (AUTO) 0.9 % (0.0-2.0); EOSINOPHILS % (AUTO) 1.7 % (0.0-6.0); HEMATOCRIT 38 % (33-45); HEMOGLOBIN 12.6 g/dL (11.5-14.8); LYMPHOCYTES # (AUTO) 2.7 /CMM (0.8-4.8); LYMPHOCYTES % (AUTO) 33.2 % (20.0-44.0); MEAN CORPUSCULAR HGB CONC 33 g/dl (31.0-36.0); MEAN CORPUSCULAR VOLUME 92 fL (82-100); MONOCYTES # (AUTO) 0.6 /CMM (0.1-1.30); MONOCYTES % (AUTO) 7.8 % (2.0-12.0); NEUTROPHILS # (AUTO) 4.5 /CMM (1.8-8.9); NEUTROPHILS % (AUTO) 56.4 % (43.0-81.0); PLATELET COUNT (AUTO) 290 /CMM (150-450); RED BLOOD CELL COUNT(AUTO) 4.14 MIL/uL (4.0-5.2)
--- NOTE | 2020-07-17 06:55 | NUR ---
RN NOTE PT CURRENTLY ASLEEP WAKES UP INTERMITTENTLY. OPENS EYES, SPEECH MORE CLEAR, PT A/O X 1. REMAINS DROWSY. YAYA CALLED UPDATE GIVEN. IV TO LFA PATENT, INTACT AND FLUSHING WELL. D5NS INFUSING AT 120 ML/HR. ON TELE MONITOR SINUS RHYTHM 60'S THROUGH OUT SHIGT. PT VOIDED 600ML THROUGH OUT SHIFT. PT REMAINS NPO. HOB IN SEMI-FOWLERS POSITION, SAFETY MEASURES IN PLACE, SIDE RAILS PADDED, SIDE RAILS UP X 3, BED ALARM ON, BED LOCKED AND IN THE LOWEST POSITION, CALL LIGHT WITHIN REACH WILL. ENDORSED TO AM FOR ADAM
--- NOTE | 2020-07-17 07:30 | NUR ---
RN FITO PATIENT IS IN BED, NO S/S OF DISTRESS, A/O X 1, ON 2L NC, O2 SAT 99%, TELE MONITOR ON, SINUS RHYTHM, SKIN INTACT, NPO, IV 22G LFA RUNNING D5NS @120ML/HR, INTACT PATENT FLUSHES EASILY, TOLERATING WELL, CT OF HEAD NEGATIVE, MRI ORDERED WITH CONTRAST FOR TODAY, BED IN LOWEST LOCKED POSITION, CALL LIGHT WITHIN REACH, SAFETY MEASURES IN PLACE, WILL CONTINUE TO MONITOR. Addendum: 07/17/20 at 0803 by PLACIDO HOWELL RN PATIENT BLOOD PRESSURE 91/46, PATIENT BASELINE SYSTOLIC BLOOD PRESSURE IN 90S AND 100S. PATIENT ASLEEP, BUT EASILY AROUSABLE. DOES NOT SPEAK MUCH, BUT SHORTER SENTENCES, COMMUNICATES NONVERBALLY (HEAD NODS, SHAKES HEAD). WILL CONTINUE TO MONITOR.
[2020-07-17 08:00] VITALS: BP 91/46
[2020-07-17 09:18] LABS: ABG BASE EXCESS 0.1 mmol/L; ABG OXYGEN SATURATION 98.6 % (92.0-98.5); ABG PCO2 46.4 mmHg (35.0-45.0); ABG PH 7.363 (7.350-7.450); ABG PO2 163.6 mmHg (75.0-100.0); COHb 0.4 % (0.5-1.5); MetHb 0.3 % (0.0-1.5); O2Hb 97.9 % (94.0-97.0); SITE, ABG Left Brachial; VENT MODE, BG 1L O2
[2020-07-17] MEDS ORDERED: PANTOPRAZOLE 40 MG VIAL IV SCH (11:15)
--- NOTE | 2020-07-17 11:36 | NUR ---
RN MS CONTACTED ENFORCEMENT SAFETY OFFICER, TALKED TO [facility] AND PROVIDED BACKGROUND INFORMATION ON THE PATIENT. SHE SAID SHE WOULD BE DOWN TO TALK TO THE PATIENT WITHIN THE HOUR.
[2020-07-17 12:00] VITALS: BP 99/48
[2020-07-17] MEDS ORDERED: GABAPENTIN 300 MG CAPSULE PO SCH (14:00)
[2020-07-17] MEDS ORDERED: LORAZEPAM 1 MG TABLET PO PRN (15:30)
--- NOTE | 2020-07-17 15:57 | NUR ---
SW received a call from patient's NIDHI Huber for a social service liaison consult. Patient is a 39 year-old female. Patient presented to [facility] for altered mental status and twitching. Patient is alert and oriented x3 (time, self, place). Patient was receptive to speaking to this SW. Patient reported to this SW that she currently lives with her parents and . Patient reports that she has been with her for 11 years and patient currently reports that she is not receiving government assistance. Patient was able to report that she is currently not working due to her being ill but patient could not provide further details. SW continued with assessment and patient stated "I refuse to answer all of the questions now, you need to leave." SW acknowledged patient's request and left the room. SW consulted with patient's NIDHI Huber that a psychiatry consult may be needed. Per NIDHI Huber, NIDHI Huber will place psychiatry consult in [facility]. SW remains available for all needs regarding this patient.
--- NOTE | 2020-07-17 16:00 | NUR ---
FLAP LINING BINDER MD MARSHALL ORDERED PRN ATIVAN BECAUSE THE PATIENT HAS PANIC ATTACKS WITH MRIs, WHEN READY TO ADMINISTER THE ATIVAN BEFORE THE MRI, THE PATIENT REFUSED THE ATIVAN AND MRI. THE PATIENT THEN DECIDED TO LEAVE A. THE ATIVAN WAS ALREADY OPENED BUT THE PATIENT REFUSED SO I WAISTED THE ATIVAN WITH PLACIDO A WITNESS.
--- NOTE | 2020-07-17 16:30 | NUR ---
COMMUNITY MIDWIFE PATIENT DECIDED TO LEAVE AMA, DR MARSHALL NOTIFIED, DISCHARGE PAPER WORK FILLED OUT AND SIGNED BY THE PATIENT, IVs REMOVED, TELE MONITOR REMOVED, BELONGINGS RETURNED, AMA PAPER SIGNED, PATIENT WALKED TO THE PRIVATE VEHICLE WHERE HER PARENTS AND PICKED HER UP.
== END 2020-07-17 16:15 | disposition left against medical advice (07) | DRG 100 ==
LOC: ER 20:04 → TELE-TD 21:44 → MEDSG1 07-17 11:13
PROVIDERS: ADMIT Nurse Practitioner Acute Care; ATTEND Nurse Practitioner Acute Care
DX: G40.901 Epilepsy, unspecified, not intractable, with status epilepticus (principal); G92 Toxic encephalopathy; E46 Unspecified protein-calorie malnutrition; Z68.1 Body mass index [BMI] 19.9 or less, adult; R64 Cachexia; K51.90 Ulcerative colitis, unspecified, without complications; F41.9 Anxiety disorder, unspecified; J45.909 Unspecified asthma, uncomplicated; Z86.59 Personal history of other mental and behavioral disorders; Z90.49 Acquired absence of other specified parts of digestive tract; G89.29 Other chronic pain; Z98.890 Other specified postprocedural states; Z88.5 Allergy status to narcotic agent; Z91.041 Radiographic dye allergy status; Z79.51 Long term (current) use of inhaled steroids; T50.905A Adverse effect of unspecified drugs, medicaments and biological substances, initial encounter; Y92.9 Unspecified place or not applicable; R62.7 Adult failure to thrive; F29 Unspecified psychosis not due to a substance or known physiological condition; Z79.899 Other long term (current) drug therapy; M06.9 Rheumatoid arthritis, unspecified
CPT/HCPCS: 36415; 36600; 70450-TC; 80048-TC; 80053-TC; 80076-TC; 81001; 82962-TC; 83735-TC; 84100-TC; 84702-TC; 84703-TC; 85025-TC; 87081-TC; C9113; C9803; G0378; G0480; J1170; J1650; J1953; J2060; J7030; J7042; J7050; U0003

== ENCOUNTER 2021-01-15 15:44 | Emergency (ER) | payer BC ==
[~2021-01-15] VITALS: Ht 167.6 cm; Wt 69.9 kg
[~2021-01-15 15:44] MED LIST changes: -ALBU8.5H8 IH; +BACL20TA PO; +CLON0.5T4 PO; +DEXT5TAB15 PO; -DOXE50CA4 PO; -GABA-534 PO; +GABA600T12 PO; +SPIR50TA5 PO; -klonopin PO
[2021-01-15] MEDS ORDERED: HYDROMORPHONE 1 MG/1 ML DISP.SYRIN IV ONE ×2 (16:00→18:30)
[2021-01-15] MEDS ORDERED: HYDROMORPHONE 1 MG/1 ML DISP.SYRIN ONE ×2 (16:04→18:46)
[2021-01-15 16:10] LABS: BASOPHILS % (AUTO) 0.6 % (0.0-2.0); EOSINOPHILS % (AUTO) 0.2 % (0.0-6.0); HEMATOCRIT 42 % (33-45); HEMOGLOBIN 14.3 g/dL (11.5-14.8); LYMPHOCYTES # (AUTO) 1.2 /CMM (0.8-4.8); LYMPHOCYTES % (AUTO) 16.2 % (20.0-44.0); MEAN CORPUSCULAR HGB CONC 34 g/dl (31.0-36.0); MEAN CORPUSCULAR VOLUME 91 fL (82-100); MONOCYTES # (AUTO) 0.4 /CMM (0.1-1.30); MONOCYTES % (AUTO) 5.8 % (2.0-12.0); NEUTROPHILS # (AUTO) 5.7 /CMM (1.8-8.9); NEUTROPHILS % (AUTO) 77.2 % (43.0-81.0); PLATELET COUNT (AUTO) 286 /CMM (150-450); WHITE BLOOD COUNT (AUTO) 7.4 K/uL (4.3-11.0)
--- NOTE | 2021-01-15 16:11 | NUR ---
LOC WITH HER MOTHER TO ER BED 7. AWAKE AND ALERT. UNABLE TO TALK BECAUSE SHE IS IN PAIN ACCORDING TO THE MOTHER. BROUGHT IN FOR LOWER ABD PAIN AND BLOOD IN THE URINE. PAIN IS 10/10. MD WAS AT THE BEDSIDE FOR EVAL. ORDERS RECEIVED, NOTED AND CARRIED OUT. IV LINE ESTABLISHED ON L WRIST 20G, BLOOD DRAWN BY PHLEB. UNABLE TO COLLECT URINE AT THIS TIME.
[2021-01-15 16:16] LABS: CALCIUM, SERUM 9.4 mg/dL (8.5-10.1); CREATININE 0.9 mg/dL (0.6-1.3); POTASSIUM 3.8 mmol/L (3.5-5.1)
--- NOTE | 2021-01-15 16:16 | NUR ---
US AT BEDSIDE
[2021-01-15 16:22] LABS: ALBUMIN 3.9 g/dL (3.4-5.0); BILIRUBIN,DIRECT 0.1 mg/dL (0.0-0.2); BILIRUBIN,TOTAL 0.3 mg/dL (0.2-1.0); TOTAL PROTEIN, SERUM 7.3 g/dL (6.4-8.2)
[2021-01-15 17:22] LABS: BILIRUBIN,URINE Negative (NEGATIVE); COLOR,URINE YELLOW (YELLOW); LEUKOCYTE ESTERASE ,URINE Negative (NEGATIVE); NITRITE, URINE Negative (NEGATIVE); PH,URINE 8.5 (5.0-8.0); PROTEIN,URINE Negative (NEGATIVE); UGLUCOSE Negative (NEGATIVE); UROBILINOGEN,URINE 0.2 EU/dL (0.2)
[2021-01-15 17:26] LABS: BACTERIA,URINE Rare /HPF (None Seen); SQUAMOUS EPITHELIAL CELL,UR Few /HPF (None Seen); WBC,URINE NONE SEEN /HPF (0-3)
--- NOTE | 2021-01-15 17:36 | NUR ---
PT TO CT
[2021-01-15] MEDS ORDERED: DICY10CA37 PO (18:22)
[2021-01-15] MEDS ORDERED: DICYCLOMINE HCL INJ 20 MG/2 ML AMPUL IM ONE ×2 (18:30→18:45)
--- NOTE | 2021-01-15 19:06 | NUR ---
Patient discharged to home in stable condition. Written and verbal after care instructions given. Patient verbalizes understanding of instruction.IV removed. Catheter intact and site benign. Pressure and 4x4 applied to site. No bleeding noted. Pt ambulatory with a steady gait
[2021-01-15 19:07] VITALS: BP 111/60
== END 2021-01-15 19:07 | disposition home or self-care (01) ==
LOC: ER 15:56
DX: K58.9 Irritable bowel syndrome, unspecified (principal); N83.201 Unspecified ovarian cyst, right side; Z90.49 Acquired absence of other specified parts of digestive tract; G89.29 Other chronic pain; Z98.890 Other specified postprocedural states; Z88.5 Allergy status to narcotic agent; Z88.6 Allergy status to analgesic agent; Z79.899 Other long term (current) drug therapy
CPT/HCPCS: 36415; 74176; 76856; 80048; 80076; 81001; 84703; 85025; 85730; 96372; 96374; 96376; 99285; J0500; J1170 ×2

== ENCOUNTER 2022-06-27 05:16 | Emergency (ER) | payer BC ==
[~2022-06-27] VITALS: Ht 167.6 cm; Wt 72.6 kg
[~2022-06-27 05:16] MED LIST changes: +DICY10CA37 PO
[2022-06-27 06:03] VITALS: BP 112/84
--- NOTE | 2022-06-27 06:06 | NUR ---
PATIENT BIBFRIEND C/O ABD PAIN RAD TO LEFT FLANK AREA FOR THE PAST WEEK, FELT WORSE THIS MORNING. PATIENT IS A/O X 4, RR EVEN UNLABORED. PATIENT TAKEN TO ER BED 11. WILL CONTINUE TO MONITOR.
--- NOTE | 2022-06-27 06:09 | NUR ---
URINE COLLECTED SENT TO LAB
[2022-06-27] MEDS ORDERED: ONDANSETRON HCL/PF 4 MG/2 ML VIAL ONE (06:24)
[2022-06-27] MEDS ORDERED: KETOROLAC TROMETHAMINE 15 MG/ML VIAL ONE (06:24)
[2022-06-27 06:29] LABS: BILIRUBIN,URINE NEGATIVE (NEGATIVE); COLOR,URINE YELLOW (YELLOW); LEUKOCYTE ESTERASE ,URINE NEGATIVE (NEGATIVE); NITRITE, URINE NEGATIVE (NEGATIVE); PROTEIN,URINE NEGATIVE (NEGATIVE); UGLUCOSE NEGATIVE (NEGATIVE); UROBILINOGEN,URINE 0.2 EU/dL (0.2)
[2022-06-27] MEDS ORDERED: ONDANSETRON HCL/PF 4 MG/2 ML VIAL IVP ONE (06:30)
[2022-06-27] MEDS ORDERED: IV NS 0.9% 1,000 ML BAG IV ONE (06:30)
[2022-06-27] MEDS ORDERED: KETOROLAC TROMETHAMINE INJ 30 MG/ML VIAL IV ONE ×2 (06:30→07:30)
[2022-06-27 07:13] LABS: BASOPHILS # (AUTO) 0.1 K/uL (0.0-0.2); BASOPHILS % (AUTO) 0.6 % (0.0-2.0); EOSINOPHILS % (AUTO) 1.5 % (0.0-6.0); HEMATOCRIT 47 % (33-45); HEMOGLOBIN 15.5 g/dL (11.5-14.8); LYMPHOCYTES % (AUTO) 29.2 % (20.0-44.0); MEAN CORPUSCULAR HGB CONC 33 g/dl (31.0-36.0); MEAN CORPUSCULAR VOLUME 88 fL (82-100); MONOCYTES # (AUTO) 0.6 K/uL (0.1-1.30); MONOCYTES % (AUTO) 5.7 % (2.0-12.0); NEUTROPHILS # (AUTO) 6.5 K/uL (1.8-8.9); PLATELET COUNT (AUTO) 396 K/uL (150-450); RED BLOOD CELL COUNT(AUTO) 5.34 MIL/uL (4.0-5.2); WHITE BLOOD COUNT (AUTO) 10.4 K/uL (4.3-11.0)
[2022-06-27] MEDS ORDERED: KETOROLAC TROMETHAMINE INJ 30 MG/ML VIAL ONE (07:23)
[2022-06-27 07:35] LABS: ALBUMIN 3.8 g/dL (3.4-5.0); BILIRUBIN,DIRECT 0.1 mg/dL (0.0-0.2); BILIRUBIN,TOTAL 0.2 mg/dL (0.2-1.0); CALCIUM, SERUM 9.7 mg/dL (8.5-10.1); CREATININE 0.9 mg/dL (0.6-1.3); POTASSIUM 4.5 mmol/L (3.5-5.1); TOTAL PROTEIN, SERUM 8.1 g/dL (6.4-8.2)
--- NOTE | 2022-06-27 07:41 | NUR ---
pt is agitated. insisting for more pain medication stating "toradol does not work" refusing to go for a ct scan. and wants to leave. provided w/ AMA form but will not sign. dr chavez is aware.
--- NOTE | 2022-06-27 07:46 | NUR ---
refused to give her ID band to staff
--- NOTE | 2022-06-27 07:47 | NUR ---
ambulated to where is waiting
--- NOTE | 2022-06-27 07:53 | NUR ---
IV line removed prior to patient leaving hospital. Risks of leaving hospital before medical clearance explained to patient, but patient again stated her desire to leave the hospital. Patient ambulated out of hospital accompanied by staff and her , removed her arm band but refused to provide armband to staff.
[2022-06-27] MEDS ORDERED: MAGN296S72 PO (11:06)
[2022-06-27] MEDS ORDERED: DOCU-141 PO (11:06)
[2022-06-27] MEDS ORDERED: POLY17PO4 PO (11:06)
== END 2022-06-27 07:54 | disposition left against medical advice (07) ==
LOC: ER 05:27
DX: R10.9 Unspecified abdominal pain (principal); Z90.49 Acquired absence of other specified parts of digestive tract; Z88.8 Allergy status to other drugs, medicaments and biological substances; Z60.2 Problems related to living alone; Z79.899 Other long term (current) drug therapy
CPT/HCPCS: 99284; 96374; 96361; 96375; 96376; 85025; 80048; 83605; 83690; 80076; 84703; 81003; 36415; J1885 ×2; J2405; J7030

== ENCOUNTER 2022-06-27 09:19 | Emergency (ER) | payer BC ==
[~2022-06-27] VITALS: Ht 167.6 cm; Wt 72.6 kg
--- NOTE | 2022-06-27 10:04 | NUR ---
PT TO RADIOLOGY FOR ABDOMINAL CT SCAN VIA [facility].
[2022-06-27] MEDS ORDERED: ACETAMINOPHEN ES 500 MG TABLET ONE (10:11)
[2022-06-27] MEDS ORDERED: TRAMADOL HCL 50 MG TABLET ONE (10:11)
[2022-06-27] MEDS ORDERED: MORPHINE SULFATE INJ 2 MG/ML DISP.SYRIN ONE (10:24)
[2022-06-27] MEDS ORDERED: diphenhydrAMINE HCL 50 MG/ML VIAL ONE (10:24)
[2022-06-27] MEDS ORDERED: diphenhydrAMINE HCL 50 MG/ML VIAL IM ONE (10:30)
[2022-06-27] MEDS ORDERED: MORPHINE SULFATE INJ 2 MG/ML DISP.SYRIN IM ONE (10:30)
[2022-06-27] MEDS ORDERED: TRAMADOL HCL 50 MG TABLET PO ONE (10:30)
[2022-06-27] MEDS ORDERED: ACETAMINOPHEN ES 500 MG TABLET PO ONE (10:30)
--- NOTE | 2022-06-27 11:00 | NUR ---
bib family for L flank/abdominal pain. seem and AMA earlier. now agree to a ct abdomen. AMBULATORY, PLACED ON BED
[2022-06-27] MEDS ORDERED: MAGN296S72 PO (11:06)
[2022-06-27] MEDS ORDERED: POLY17PO4 PO (11:06)
[2022-06-27] MEDS ORDERED: DOCU-141 PO (11:06)
--- NOTE | 2022-06-27 11:20 | NUR ---
Patient discharged to home in stable condition. Written and verbal after care instructions given. Patient verbalizes understanding of instruction.
[2022-06-27 11:37] VITALS: BP 115/60
== END 2022-06-27 11:20 | disposition home or self-care (01) ==
LOC: ER 09:23
DX: R10.9 Unspecified abdominal pain (principal); Z90.49 Acquired absence of other specified parts of digestive tract; Z88.8 Allergy status to other drugs, medicaments and biological substances; Z60.2 Problems related to living alone; Z79.899 Other long term (current) drug therapy
CPT/HCPCS: 99284; 74176; 76856; 96372 ×2; J1200; J2270

== ENCOUNTER 2023-04-09 23:24 | Emergency (ER) | payer BC ==
[~2023-04-09] VITALS: Ht 167.6 cm; Wt 68.0 kg
[~2023-04-09 23:24] MED LIST changes: +DOCU-141 PO; +MAGN296S72 PO; +POLY17PO4 PO
[2023-04-10] MEDS ORDERED: MORPHINE SULFATE INJ 4 MG/ML DISP.SYRIN ONE ×2 (00:25→03:32)
[2023-04-10] MEDS ORDERED: ONDANSETRON HCL/PF 4 MG/2 ML VIAL ONE (00:25)
[2023-04-10] MEDS ORDERED: MORPHINE SULFATE INJ 2 MG/ML DISP.SYRIN IV ONE ×2 (00:30→03:30)
[2023-04-10] MEDS ORDERED: IV NS 0.9% 500 ML BAG IV ONE (00:30)
[2023-04-10] MEDS ORDERED: ONDANSETRON HCL/PF 4 MG/2 ML VIAL IVP ONE (00:30)
[2023-04-10 01:05] LABS: BASOPHILS # (AUTO) 0.1 K/uL (0.0-0.2); BASOPHILS % (AUTO) 0.8 % (0.0-2.0); EOSINOPHILS # (AUTO) 0.3 K/uL (0.0-0.7); EOSINOPHILS % (AUTO) 2.9 % (0.0-6.0); HEMATOCRIT 41 % (33-45); HEMOGLOBIN 13.3 g/dL (11.5-14.8); LYMPHOCYTES # (AUTO) 2.9 K/uL (0.8-4.8); LYMPHOCYTES % (AUTO) 24.4 % (20.0-44.0); MEAN CORPUSCULAR HEMOGLOBIN 29 PG (26.0-33.0); MEAN CORPUSCULAR HGB CONC 33 g/dl (31.0-36.0); MEAN CORPUSCULAR VOLUME 88 fL (82-100); MONOCYTES # (AUTO) 0.6 K/uL (0.1-1.30); MONOCYTES % (AUTO) 5.4 % (2.0-12.0); NEUTROPHILS # (AUTO) 7.9 K/uL (1.8-8.9); NEUTROPHILS % (AUTO) 66.5 % (43.0-81.0); PLATELET COUNT (AUTO) 375 K/uL (150-450); RED BLOOD CELL COUNT(AUTO) 4.62 MIL/uL (4.0-5.2); RED CELL DISTRIBUTION WIDTH 13.6 % (11.5-15.0); WHITE BLOOD COUNT (AUTO) 11.9 K/uL (4.3-11.0)
[2023-04-10 01:21] LABS: ALBUMIN 3.5 g/dL (3.4-5.0); BILIRUBIN,DIRECT 0.1 mg/dL (0.0-0.2); BILIRUBIN,TOTAL 0.2 mg/dL (0.2-1.0); CALCIUM, SERUM 9.3 mg/dL (8.5-10.1); CREATININE 1.1 mg/dL (0.6-1.3); POTASSIUM 3.8 mmol/L (3.5-5.1); TOTAL PROTEIN, SERUM 7.4 g/dL (6.4-8.2)
[2023-04-10 01:22] LABS: INR 0.91 (0.91-1.10); PARTIAL THROMBOPLASTIN TIME 29.4 SEC (24.3-34.3); PROTHROMBIN TIME 9.6 SECS (9.2-11.1)
[2023-04-10 01:22] LABS: APPEARANCE,URINE CLEAR (CLEAR); COLOR,URINE YELLOW (YELLOW); PREGNANCY TEST URINE QUAL NEGATIVE (NEGATIVE)
[2023-04-10 01:23] LABS: BILIRUBIN,URINE NEGATIVE (NEGATIVE); BLOOD, URINE NEGATIVE Ery/uL (NEGATIVE); KETONES,URINE NEGATIVE (NEGATIVE); LEUKOCYTE ESTERASE ,URINE NEGATIVE (NEGATIVE); NITRITE, URINE NEGATIVE (NEGATIVE); PH,URINE 6.5 (5.0-8.0); PROTEIN,URINE NEGATIVE (NEGATIVE); UGLUCOSE NEGATIVE (NEGATIVE); UROBILINOGEN,URINE 0.2 EU/dL (0.2)
[2023-04-10 02:01] VITALS: TEMP 98.4
[2023-04-10 04:04] VITALS: BP 130/81; O2SAT 98
== END 2023-04-10 04:06 | disposition home or self-care (01) ==
LOC: ER 23:36
DX: N83.202 Unspecified ovarian cyst, left side (principal); Z79.899 Other long term (current) drug therapy; Z98.890 Other specified postprocedural states; Z91.040 Latex allergy status
CPT/HCPCS: 99285; 74176; 96374; 76856; 96361; 96375; 96376; 85025; 80048; 83690; 80076; 84703; 81003; 36415; 85730; J2270 ×2; J2405; J7040

== ENCOUNTER 2024-06-17 17:13 | Emergency (ER) | payer BC ==
[~2024-06-17] VITALS: Ht 162.6 cm; Wt 74.8 kg
[2024-06-17 17:49] LABS: BASOPHILS # (AUTO) 0.1 K/uL (0.0-0.2); BASOPHILS % (AUTO) 1.1 % (0.0-2.0); EOSINOPHILS # (AUTO) 0.2 K/uL (0.0-0.7); EOSINOPHILS % (AUTO) 2.6 % (0.0-6.0); HEMATOCRIT 47 % (33-45); HEMOGLOBIN 15.7 g/dL (11.5-14.8); LYMPHOCYTES # (AUTO) 2.6 K/uL (0.8-4.8); LYMPHOCYTES % (AUTO) 31.4 % (20.0-44.0); MEAN CORPUSCULAR HEMOGLOBIN 29 PG (26.0-33.0); MEAN CORPUSCULAR HGB CONC 34 g/dl (31.0-36.0); MEAN CORPUSCULAR VOLUME 88 fL (82-100); MONOCYTES # (AUTO) 0.5 K/uL (0.1-1.30); MONOCYTES % (AUTO) 6.5 % (2.0-12.0); NEUTROPHILS # (AUTO) 4.8 K/uL (1.8-8.9); NEUTROPHILS % (AUTO) 58.4 % (43.0-81.0); PLATELET COUNT (AUTO) 375 K/uL (150-450); RED BLOOD CELL COUNT(AUTO) 5.34 MIL/uL (4.0-5.2); RED CELL DISTRIBUTION WIDTH 13.2 % (11.5-15.0); WHITE BLOOD COUNT (AUTO) 8.3 K/uL (4.3-11.0)
[2024-06-17 18:01] LABS: INR 0.93 (0.91-1.10); PARTIAL THROMBOPLASTIN TIME 28.8 SEC (24.3-34.3); PROTHROMBIN TIME 9.9 SECS (9.2-11.1)
[2024-06-17 18:04] LABS: CALCIUM, SERUM 9.5 mg/dL (8.5-10.1); CREATININE 0.9 mg/dL (0.6-1.3)
[2024-06-17 18:10] LABS: BILIRUBIN,DIRECT 0.1 mg/dL (0.0-0.2); BILIRUBIN,TOTAL 0.4 mg/dL (0.2-1.0); TOTAL PROTEIN, SERUM 8.6 g/dL (6.4-8.2)
[2024-06-17] MEDS ORDERED: ONDANSETRON HCL/PF 4 MG/2 ML VIAL ONE (18:11)
[2024-06-17] MEDS ORDERED: KETOROLAC TROMETHAMINE INJ 30 MG/ML VIAL ONE (18:17)
[2024-06-17] MEDS: TRAMADOL HCL 50 MG TABLET PO ONE (18:23)
[2024-06-17] MEDS: KETOROLAC TROMETHAMINE INJ 30 MG/ML VIAL IV ONE (18:24)
[2024-06-17] MEDS: ONDANSETRON HCL/PF - ER 4 MG/2 ML VIAL IV ONE (18:24)
[2024-06-17] MEDS ORDERED: MORPHINE SULFATE INJ 4 MG/ML DISP.SYRIN ONE (18:50)
[2024-06-17] MEDS: MORPHINE SULFATE INJ 2 MG/ML DISP.SYRIN IV ONE ×2 (18:59→21:32)
[2024-06-17 19:19] LABS: APPEARANCE,URINE CLEAR (CLEAR); BILIRUBIN,URINE NEGATIVE (NEGATIVE); BLOOD, URINE NEGATIVE Ery/uL (NEGATIVE); COLOR,URINE YELLOW (YELLOW); KETONES,URINE NEGATIVE (NEGATIVE); LEUKOCYTE ESTERASE ,URINE NEGATIVE (NEGATIVE); NITRITE, URINE NEGATIVE (NEGATIVE); PROTEIN,URINE NEGATIVE (NEGATIVE); UGLUCOSE NEGATIVE (NEGATIVE); UROBILINOGEN,URINE 0.2 EU/dL (0.2)
[2024-06-17 19:21] LABS: PREGNANCY TEST URINE QUAL NEGATIVE (NEGATIVE)
[2024-06-17] MEDS ORDERED: IV NS 0.9% 250 ML IV ONE (19:23)
[2024-06-17] MEDS ORDERED: IOHEXOL-300 100 ML VIAL IV ONE (19:23)
[2024-06-17] MEDS ORDERED: CT SWABBABLE VALVE TRANS SET 1 EA INFUS.SET MC ONE (19:23)
[2024-06-17] MEDS ORDERED: MORPHINE SULFATE INJ 2 MG/ML DISP.SYRIN ONE (21:29)
[2024-06-18] MEDS ORDERED: MORPHINE SULFATE INJ 2 MG/ML DISP.SYRIN ONE (04:10)
[2024-06-18] MEDS: MORPHINE SULFATE INJ 2 MG/ML DISP.SYRIN IV ONE (04:20)
[2024-06-18 04:23] VITALS: BP 132/89; TEMP 98.8; O2SAT 99
== END 2024-06-18 04:23 | disposition home or self-care (01) ==
LOC: ER 17:21
DX: R10.2 Pelvic and perineal pain (principal); R11.2 Nausea with vomiting, unspecified; K58.9 Irritable bowel syndrome, unspecified; Z87.42 Personal history of other diseases of the female genital tract; Z88.8 Allergy status to other drugs, medicaments and biological substances; Z90.49 Acquired absence of other specified parts of digestive tract; Z79.899 Other long term (current) drug therapy; Z91.041 Radiographic dye allergy status; Z86.59 Personal history of other mental and behavioral disorders; Z87.448 Personal history of other diseases of urinary system
CPT/HCPCS: 99285; 74176; 96374; 76856; 96375; 96376 ×2; 85025; 80048; 83690; 80076; 84703; 81003; 36415; 85730; J2270 ×3; J1885; J2405 ×2; J7050; Q9967